=== PATIENT | female | born 1930 | race Caucasian/White ===

== ENCOUNTER 2018-04-06 13:23 | Inpatient (IN) | payer MEDICARE ==
[2018-04-06] MEDS ORDERED: Lidocaine 1% (PF) 30 ML VIAL ONE (13:45)
[2018-04-06] MEDS ORDERED: Labetalol HCl 100 MG/20 ML VIAL ONE (14:10)
--- NOTE | 2018-04-06 15:34 | CT ---
NONCONTRAST CT ABDOMEN AND PELVIS: Date: 04/06/18 HISTORY: Acute renal failure, nausea, vomiting, and constipation, as well as abdominal cramping. COMPARISON: 04/06/18 at 1050 hours obtained from [facility]. FINDINGS: Minimal bibasilar atelectasis versus scarring. Vascular calcifications again seen in the abdominal aorta and iliac arteries, as well as splenic darien ry. Post cholecystectomy changes are present. There is a stable fat density lesion involving the left adrenal gland, also seen on the prior study, which may represent a lipid-rich adrenal adenoma or possibly adrenal myelolipoma. Kidneys again demonstrate lobulated appearance with cortical scarring again present. There is stable moderate bilateral hydronephrosis, as well as hydroureter similar to the prior exam. There are stable low density lesions within the right kidney, also stable from prior study on 01/26/17, which are dif ficult to characterize and probably represent cysts. The liver, spleen, pancreas, and right adrenal gland demonstrate a normal CT appearance. Urinary bladder is incompletely distended. Postsurgical changes related to hysterectomy are noted. Large amount of stool is again seen within the rectum and findings are suggestive of fecal impaction. There is thickening involving the hernandez of the rectum extending to the level of the rectosigmoid rickey ction. There is perirectal inflammatory changes, greatest in a presacral location, and findings may b e related to stercoral colitis. A small amount of free fluid is seen in a presacral location in the l ower pelvis. No free intraperitoneal gas is appreciated. No definite gas is seen in the bowel wall of the rectum. Again noted are multilevel degenerative changes in the spine with osteopenia. CT abdomen and pelvis are overall stable from the recent study also obtained earlier on today's date. IMPRESSION: 1. Evidence for fecal impaction with rectal wall thickening extending to the level of the rectosigmo id junction, as well as inflammatory stranding in a pericolonic location with an associated small chung unt of fluid. Findings could be related to stercoral colitis. No free intraperitoneal gas is seen on this exam. 2. Moderate bilateral hydronephrosis and hydroureter also seen on the prior study. This may be on th e basis of vesicoureteral reflux, and prior [facility] on 01/25/17 demonstrated bilateral Grade IV-V vesico ureteral reflux. 3. Cortical scarring involving each kidney with difficult to characterize hypodense lesions, predomi nantly on the right, stable from prior study. 4. Small hiatal hernia. 5. The CT scan of the abdomen and pelvis is overall stable compared to the prior study. POS: [facility]
--- NOTE | 2018-04-06 15:54 | PDOC.FPRHP ---
- History of Present Illness Chief Complaint: constipation, N/V History of Present Illness: Patient started Iron tabs 1 week ago and has not had a BM for 5 days. She has had nausea, vomiting, and decreased appetite since thursday. Burning with urination since thursday. Family states that she has been weak since thursday or so. Denies blood in the stools. ED Course: CT scan x2 showed fecal impaction and colitis, Vanc 1 g, rocephin 1 g, NS 30 ml/ kg bolus, labetolol and ASA CXR showed new pulmonary nodule - Allergies/Adverse Reactions Allergies Allergy/AdvReac Type Severity Reaction Status Date / Time Sulfa (Sulfonamide Allergy Verified 10/17/15 10:28 Antibiotics) Tetracyclines Allergy Verified 10/17/15 10:28 - Home Medications Medication Instructions Recorded Confirmed Type Aspirin [Aspirin EC] 81 mg PO DAILY 06/13/14 04/06/18 History Calcitriol 0.25 mcg PO DAILY 06/13/14 04/06/18 History Spironolactone [Aldactone] 50 mg PO DAILY 06/13/14 04/06/18 History cloNIDine [Catapres] 0.1 mg PO BID 06/13/14 04/06/18 History Atorvastatin Calcium [Lipitor] 20 mg PO HS #0 tab 06/15/14 04/06/18 Rx Metoprolol Succinate [Toprol XL] 25 mg PO DAILY #0 tab 06/15/14 04/06/18 Rx Nitroglycerin [Nitrostat] 0.4 mg SL Q5MIN PRN #0 tab 06/15/14 04/06/18 Rx Cephalexin 250 mg PO HS 10/17/15 04/06/18 History Latanoprost [Xalatan 0.005% Ophth 1 drop EA EYE HS 10/17/15 04/06/18 History Soln] Oxybutynin Chloride [Oxybutynin 10 mg PO DAILY 10/17/15 04/06/18 History Chloride ER] Potassium Chloride [K-Tab ER] 10 meq PO DAILY 10/17/15 04/06/18 History - History PMHx: HTN, chronic renal insufficiency (Jovel), HLD, hiatal hernia, hx HTN nephropathy, secondary hyperparathyroidism, diastolic dysfunction, glaucoma, cervical cancer, DJD, infectious hepatitis 1963 and 1977 PSHx: cholecystectomy, hysterectomy with bilat salpoingo-oophorectomy, cardiac stents x2 in 2014, parathyroidectomy, appendectomy, cervical cancer with cervical surgery with rads and chemo (at [facility], 1977), 2000 cardiac cath, Cystoscope by for recurrent UTIs, bilat total knee replacements 2008 FHx: Father 76 of old age and arthritis. Mother @ 96 of CHF and DM. Pt has three brothers, 2 of MIs. 3 sisters, one of an [place]. Fam Hx positive ofr HTN, cardiovascular disease, diabetes, COPD Social: 34 PY hx, stopped in 1977. Rare alcohol intake (<1 month), denied drug use - Review of Systems General: reports: weight/appetite/sleep changes (decreased appetite), fatigue. denies: fever/chills Eyes: denies: eye pain, vision changes ENT: reports: nasal congestion, rhinorrhea Respiratory: denies: cough, shortness of breath Cardiovascular: denies: chest pain, palpitation Gastrointestinal: reports: nausea, vomiting, constipation. denies: GI bleeding Genitourinary: reports: incontinence, dysuria, polyuria Skin: denies: rashes, itching Musculoskeletal: reports: other (calves are aching for one month). denies: pain , arthritis/arthralgias Neurological: denies: numbness, seizure, weakness Psychological: denies: anxiety, depression - Vital signs BP: [196/116] HR: [96] RR: [18] Tmax: [98.7] Pox: [98]% on [ra] Wt: [59] - Physical Exam Constitutional: NAD, well developed HEENT: normocephalic and atraumatic, PERRLA, normal nasal mucosa, MMM Neck: supple, no LAD Heart: RRR, normal S1/S2, pulses present Lungs: CTAB, no wheezing Abdomen: soft, bowel sounds present -Abdomen: very TTP in lower abdomen Psychiatric: normal mood and affect, good judgment and insight, intact recent and remote memory FMR H&P: Results - Labs Result Diagrams: 04/07/18 06:04 04/07/18 06:04 FMR H&P: A/P - Problem List (1) Sepsis secondary to UTI Current Visit: Yes Status: Acute Code(s): A41.9 - SEPSIS, UNSPECIFIED ORGANISM; N39.0 - URINARY TRACT INFECTION, SITE NOT SPECIFIED (2) Hypertensive urgency Current Visit: Yes Status: Acute Code(s): I16.0 - HYPERTENSIVE URGENCY (3) Hypovolemia Current Visit: Yes Status: Acute Code(s): E86.1 - HYPOVOLEMIA (4) BRADLEY (acute kidney injury) Current Visit: Yes Status: Acute Code(s): N17.9 - ACUTE KIDNEY FAILURE, UNSPECIFIED (5) Chronic renal insufficiency Current Visit: Yes Status: Chronic Code(s): N18.9 - CHRONIC KIDNEY DISEASE, UNSPECIFIED (6) Colitis Current Visit: Yes Status: Acute Code(s): K52.9 - NONINFECTIVE GASTROENTERITIS AND COLITIS, UNSPECIFIED (7) Pulmonary nodule Current Visit: Yes Status: Acute Code(s): R91.1 - SOLITARY PULMONARY NODULE (8) Elevated troponin Current Visit: Yes Status: Acute Code(s): R74.8 - ABNORMAL LEVELS OF OTHER SERUM ENZYMES (9) Hyponatremia Current Visit: Yes Status: Acute Code(s): E87.1 - HYPO-OSMOLALITY AND HYPONATREMIA (10) Lactic acid acidosis Current Visit: Yes Status: Acute Code(s): E87.2 - ACIDOSIS (11) Hyperkalemia Current Visit: Yes Status: Acute Code(s): E87.5 - HYPERKALEMIA (12) CAD (coronary artery disease) Current Visit: Yes Status: Chronic Code(s): I25.10 - ATHSCL HEART DISEASE OF [place] CORONARY ARTERY W/O ANG PCTRS (13) Glaucoma Current Visit: Yes Status: Chronic Code(s): H40.9 - UNSPECIFIED GLAUCOMA - Plan 87 yo F presents with hypovolemia, sepsis 2/2 UTI, HTN urgency, and stercolitis Sepsis 2/2 UTI -WBC elevated at 17, HR 96, and LA elevated to 2.4 -Received 1 g Rocephin in [place], 30 ml/kg NS bolus in [place], 1 g vanc -Discontinue vanc -Continue with 1 g IV rocephin ordered for tomorrow -gentle fluid hydration, NS @ 100 ml/hr per Dr. Jovel -urine cx pending -AM CBC and BMP HTN Urgency -continue home metoprolol, clonidine, spironolactone -Labetolol and Hydralazine PRN for SBP >180 Hypovolemia -Pt has had nausea, vomiting, decreased intake for last 4 days -Elevated Bun/Cr, elevated trop -rehydrate with IV NS BRADLEY on CKD -Elevated Bun and Cr (Cr increased from 2 to 3.56) -Dr. Jovel is her rubber mill tender, consulted 04/06, appreciate recs -Abd/Pelv CT shows bilat hydronephrosis and bilat renal cysts Stercolitis -CT abd/pelvis showed fecal impaction -rectal exam, no fecal material in rectal vault -bowel regimen started -Zosyn Pulmonary nodule -repeat 2V CXR Elevated Troponin -most likely 2/2 to demand ischemia -EKG in [place] - repeat LA Hyponatremia -133, continue to monitor, expect to resolve with NS IV hydration Hyperkalemia -5.3, continue to monitor, expect to resolve with IV hydration CAD -hx of 2 cardiac stents in 2014 -Continue home aspirin and atorvastatin Glaucoma -Continue home latanoprost Dispo: LOS >2 midnights Code status: DNR FMR H&P: Upper Level - Pertinent history Patient comes in for feeling weak since thursday. She started iron 1 week ago and has not had a BM for 5 days. She has had N/V and decreased appetite for the last 2-3 days not getting all of her medications down during this time. She states she has pressure in the LLQ. Does not radiate, nothing better or worse. She has also had burning with urination for about 5 days. No blood in urine or in the stools. - Pertinent findings BP: 196/116 HR: 96 RR: 18 Tmax: 98.7 Pox: 98% on RA - Physical Exam Constitutional: awake, alert and oriented x3 HEENT: normocephalic and atraumatic, EOMI Neck: FROM, trachea midline Chest: no-tender to palpation Heart: RRR , normal S1/S2, other Lungs: no respiratory distress, CTA-B Abdomen: soft, bowel sounds present, tenderness throughout Rectal: Good tone, no impacted stool, no jennifer blood Musculoskeletal: normal structure, normal tone Heme/Lymphatic: no unusual bruising or bleeding, no purpura - Plan Date/Time: 04/06/18 1552 Loy Ruth, have evaluated this patient and agree with findings/plan as outlined by internal medicine physician assistant resident. Pertinent changes/additions are listed here. Sepsis 2/2 Colitis - fecal impaction - bowel regimen - Zosyn - Maintenance fluids - trend lactic Impaction - miralax, colace, milk of mag - enema if no BM tomorrow BRADLEY - likely 2/2 intravascular depletion - baseline Cr 2-2.5 - consulted Dr. Jovel UTI - Zosyn, urine cx pending Elevated Trop - no chest pain - trend - no ekg changes, repeat ekg - hx of CAD w/ 2 stents Hyper K+ - 5.3, no EKG changes - monitor Pulm Nodule - f/u on 2V CXR Dispo: 2-3 days PPx: heparin Code: DNR Attending Addendum - Attending Addendum Date/Time: 04/07/18 1028 I personally evaluated the patient and discussed the management with Drs. Peralta and Loy Rodriguez. I agree with the History, Examination, Assessment and Plan documented above with any addition or exceptions noted below.
[2018-04-06] MEDS ORDERED: Ondansetron HCl/PF 4 MG/2 ML Vial IVP PRN (16:17)
[2018-04-06] MEDS ORDERED: Polyethylene Glycol 3350 17 GM Packet PO SCH (16:30)
[2018-04-06] MEDS ORDERED: Milk Of Magnesia 30 ML UDCUP PO SCH (16:30)
[2018-04-06] MEDS ORDERED: Labetalol HCl 100 MG/20 ML VIAL SLOW IVP PRN (16:35)
--- NOTE | 2018-04-06 16:47 | RAD ---
PA AND LATERAL CHEST: Date: 04/06/18 HISTORY: Pulmonary nodule noted on prior exam. COMPARISON: 04/06/18. FINDINGS: The previously noted tiny nodular density overlying the right mid lung zone is less well delineated o n this examination. No definite discrete pulmonary nodule is seen. Cardiac silhouette and pulmonary v asculature are within normal limits. Vascular calcifications are again seen. No other interval change . IMPRESSION: Previously noted nodular density right mid lung zone is not definitely visualized on this exam. As a conservative measure, follow-up evaluation in 3 months is recommended. Lungs are otherwise clear. POS: [facility]
[2018-04-06] MEDS ORDERED: hydrALAZINE 20 MG/ML VIAL SLOW IVP PRN (17:13)
[2018-04-06 17:31] LABS: Troponin I 0.609 ng/mL (< 0.028)
[2018-04-06] MEDS: cloNIDine 0.1 MG TAB PO SCH (20:13)
[2018-04-06] MEDS: Atorvastatin Calcium 20 MG TAB PO SCH (20:13)
[2018-04-06] MEDS: Senokot S 8.6-50 MG TAB PO SCH (20:13)
[2018-04-06] MEDS: Sodium Chloride 0.9% 1,000 ML IV SCH (20:14)
[2018-04-06] MEDS ORDERED: Heparin 5,000 UNITS/ML VIAL SC SCH (21:00)
[2018-04-06 21:24] LABS: Lactic Acid 1.1 mmol/L (0.5-2.2)
[2018-04-06] MEDS: Latanoprost 0.005% Ophth Soln 2.5 ml Bottle EA EYE SCH (22:37)
[2018-04-06] MEDS: Piperacillin/Tazobactam 4.5 GM in Sodium Chloride 0.9% 100 ML IVPB SCH (22:37)
[2018-04-06 23:15] LABS: CKMB 9.1 ng/mL (0-6.6); Troponin I 1.187 ng/mL (< 0.028)
--- NOTE | 2018-04-06 23:44 | PDOC.EVN ---
Event Note - Event Note Event Note: Resident to bedside to evaluate patient for elevated troponin and CK-MB. Repeat EKG also obtained and reviewed which shows baseline reading w/ LBBB which was present on prior EKG. troponin increased .095 at outside facility to 0.609 to 1.187 w/ increase in CK-MB from 3.7 to 9.1. Patient sleeping in NAD upon entering room. Denies any current active chest pain. Vital signs reviewed and are stable at this time. Discussed plan with attending Dr. Hirsch and will plan to start heparin drip in setting of possible NSTEMI in patient w/ renal disease and with uptrending troponins and CK-MB. Will continue with serial cardiac enzymes q3 hrs. Will continue to closely monitor and consult cardiology if enzymes to not stabilize for further evaluation and intervention. Nursing Staff notified of plan and advised to contact physician immediately if patient endorses active chest pain. Nursing staff expressing understanding of plan.
[2018-04-06] MEDS ORDERED: Heparin 10,000 UNITS/ 10 ML VIAL SLOW IVP SCH (23:45)
[2018-04-06] MEDS ORDERED: Heparin 25,000 units/D5W 500 ML IVPB SCH (23:45)
[2018-04-07 00:05] LABS: Hemoglobin 11.6 g/dL (12.0-16.0); Platelet Count 129 thou/uL (130-400)
[2018-04-07 02:40] LABS: Troponin I 1.312 ng/mL (< 0.028)
[2018-04-07] MEDS: Piperacillin/Tazobactam 4.5 GM in Sodium Chloride 0.9% 100 ML IVPB SCH (04:10)
[2018-04-07 04:19] LABS: CKMB 7.6 ng/mL (0-6.6); Critical Call CKMBM RESULT DECREASING; Critical Call Chem Troponin I RESULT DECREASING; Troponin I 1.249 ng/mL (< 0.028)
--- NOTE | 2018-04-07 05:50 | PDOC.FM ---
- Subjective Subjective: Pt reports abdominal pain is improving, 5/10 this morning. Had BM overnight. - Objective Vital Signs & Weight: Vital Signs (12 hours) Temp Pulse Resp BP BP Pulse Ox 04/07/18 03:20 98.0 F 78 16 140/66 98 04/06/18 21:30 97.9 F 85 18 146/62 H 97 04/06/18 20:13 163/66 H 04/06/18 20:00 98.3 F 75 16 163/66 H 97 04/06/18 17:55 98.1 F 85 18 166/90 H 100 Weight Weight 56.699 kg Result Diagrams: 04/07/18 06:04 04/07/18 06:04 <Kathryn Rodriguez - Last Filed: 04/07/18 09:01> - Objective Vital Signs & Weight: Vital Signs (12 hours) Temp Pulse Resp BP Pulse Ox 04/07/18 11:54 98.7 F 71 18 154/67 H 99 04/07/18 08:05 98 04/07/18 08:00 97.8 F 79 18 128/60 98 04/07/18 03:20 98.0 F 78 16 140/66 98 Weight Weight 56.699 kg I&O: 04/06/18 04/07/18 04/08/18 06:59 06:59 06:59 Intake Total 1568 Balance 1568 Result Diagrams: 04/07/18 06:04 04/07/18 06:04 <Leonela Bacon - Last Filed: 04/07/18 15:00> Phys Exam - Physical Examination Constitutional: NAD Neck: no nodes, supple Respiratory: no wheezing, clear to auscultation bilateral Cardiovascular: RRR, no significant murmur Gastrointestinal: no distention, positive bowel sounds Diffusely TTP, guarding present, no rebound Musculoskeletal: no edema, pulses present Neurological: normal sensation, moves all 4 limbs Psychiatric: normal affect <Kathryn Rodriguez - Last Filed: 04/07/18 09:01> Dx/Plan (1) Sepsis secondary to UTI Code(s): A41.9 - SEPSIS, UNSPECIFIED ORGANISM; N39.0 - URINARY TRACT INFECTION, SITE NOT SPECIFIED Status: Acute (2) Hypertensive urgency Code(s): I16.0 - HYPERTENSIVE URGENCY Status: Acute (3) Hypovolemia Code(s): E86.1 - HYPOVOLEMIA Status: Acute (4) BRADLEY (acute kidney injury) Code(s): N17.9 - ACUTE KIDNEY FAILURE, UNSPECIFIED Status: Acute (5) Chronic renal insufficiency Code(s): N18.9 - CHRONIC KIDNEY DISEASE, UNSPECIFIED Status: Chronic (6) Colitis Code(s): K52.9 - NONINFECTIVE GASTROENTERITIS AND COLITIS, UNSPECIFIED Status : Acute (7) Pulmonary nodule Code(s): R91.1 - SOLITARY PULMONARY NODULE Status: Acute (8) Elevated troponin Code(s): R74.8 - ABNORMAL LEVELS OF OTHER SERUM ENZYMES Status: Acute (9) Hyponatremia Code(s): E87.1 - HYPO-OSMOLALITY AND HYPONATREMIA Status: Acute (10) Lactic acid acidosis Code(s): E87.2 - ACIDOSIS Status: Acute (11) Hyperkalemia Code(s): E87.5 - HYPERKALEMIA Status: Acute (12) CAD (coronary artery disease) Code(s): I25.10 - ATHSCL HEART DISEASE OF [place] CORONARY ARTERY W/O ANG PCTRS Status: Chronic (13) Glaucoma Code(s): H40.9 - UNSPECIFIED GLAUCOMA Status: Chronic - Plan Plan: 87 yo F presents with sepsis 2/2 UTI, HTN urgency,hypovolemia, and stercolitis Sepsis 2/2 UTI vs stercolitis -WBC elevated at 17, HR 96, and LA elevated to 2.4 -Received 1 g Rocephin in [place], 30 ml/kg NS bolus in [place], 1 g vanc -Discontinued vanc, started zosyn for colitis -Continue with 1 g IV rocephin until cultures result -gentle fluid hydration, NS @ 100 ml/hr per Dr. Jovel -urine cx pending -AM CBC and BMP NSTEMI -possibly 2/2 to demand ischemia -Trop increased to 1.312 then trended down; CKMB trended down from 9.1 to 7.6; pt asx, EKG neg -Heparin drip started -Consult cardiology today - EKG in [place] wnl - repeat LA improved: 2.4-> 1.1 BRADLEY on CKD -Elevated Bun and Cr (Cr increased from 2 to 3.56) -Dr. Jovel is her life skills specialist, consulted 04/06, appreciate recs -Abd/Pelv CT shows bilat hydronephrosis and bilat renal cysts HTN Urgency, resolved -Likely 2/2 to medication noncompliance, as patient was unable to take home meds with n/v -continue home metoprolol, clonidine, spironolactone -Labetolol and Hydralazine PRN for SBP >180 Hypovolemia -Pt has had nausea, vomiting, decreased intake for last 4 days -Elevated Bun/Cr, elevated trop -rehydrate with IV NS Stercolitis -CT abd/pelvis showed fecal impaction -rectal exam, no fecal material in rectal vault -bowel regimen started, Had BM overnight -Zosyn Pulmonary nodule -repeat 2V CXR, nodules not definitely visualized -recommend 3 month follow up CXR Hyponatremia -133, continue to monitor, expect to resolve with NS IV hydration Hyperkalemia -5.3, continue to monitor, expect to resolve with IV hydration CAD -hx of 2 cardiac stents in 2014 -Continue home aspirin and atorvastatin Glaucoma -Continue home latanoprost Dispo: LOS >2 midnights Code status: DNR <Kathryn Rodriguez - Last Filed: 04/07/18 09:01> Attending Addendum - Attending Addendum Date/Time: 04/07/18 4041 I personally evaluated the patient and discussed the management with Dr. Jhonny Rodriguez I agree with the History, Examination, Assessment and Plan documented above with any addition or exceptions noted below- Patient feeling better. Tolerating po. Afebrile VSS. A/P: 1) BRADLEY on CKD stage 4- continue IV hydration. Appreciate nephrology assistance/recommendations. 2) UTI- continue IV abx. Await urine culture. 3) Sterocolitis- has had BM since last night; abdominal exam stable continue to monitor. Contiue miralax/senna. <Leonela Bacon - Last Filed: 04/07/18 15:00>
[2018-04-07 06:14] LABS: #Lymphocytes 0.5 thou/uL (1.20-3.40); #Monocytes 0.4 thou/uL (0.11-0.59); #Neutrophils 9.6 thou/uL (1.40-6.50); %Monocytes 3.6 % (0.0-10.0); %Neutrophils 91.4 % (42.0-75.0); Hemoglobin 11.1 g/dL (12.0-16.0); Mean Corpuscular HGB CONC 31.6 g/dL (32.0-36.0); Mean Corpuscular Hemoglobin 26.1 pg (27.0-31.0); Mean Corpuscular Volume 82.6 fL (78.0-98.0); Mean Platelet Volume 10.4 fL (7.4-10.4); Platelet Count 133 thou/uL (130-400); RBC Distribution Width 15.6 % (11.5-14.5); Red Blood Cell (RBC) Count 4.24 mill/uL (4.20-5.40); White Blood Cell (WBC) Count 10.5 thou/uL (4.8-10.8)
[2018-04-07] MEDS: Sodium Chloride 0.9% 1,000 ML IV SCH ×3 (06:17→23:24)
[2018-04-07 06:29] LABS: PTT 118.9 SEC (22.9-36.1)
[2018-04-07 06:37] LABS: ALT (SGPT) 7 U/L (8-55); AST (SGOT) 15 U/L (5-34); Albumin 2.8 g/dL (3.4-4.8); Alkaline Phosphatase 62 U/L (40-150); Anion Gap 14 mmol/L (10-20); BUN (Urea Nitrogen) 56 mg/dL (9.8-20.1); Calc. Creatinine Clearance 15 mL/min (70-130); Calcium 9.3 mg/dL (7.8-10.44); Carbon Dioxide 11 mmol/L (23-31); Chloride 111 mmol/L (98-107); Estimated GFR-MDRD 19; Globulin 2.7 g/dL (2.4-3.5); Glucose 122 mg/dL (83-110); Potassium 4.3 mmol/L (3.5-5.1); Protein, Total 5.5 g/dL (6.0-8.3); Sodium 132 mmol/L (136-145)
[2018-04-07] MEDS: Spironolactone 25 MG TAB PO SCH (08:40)
[2018-04-07] MEDS: Calcitriol 0.25 MCG CAP PO SCH (08:41)
[2018-04-07] MEDS: cloNIDine 0.1 MG TAB PO SCH ×2 (08:41→20:44)
[2018-04-07] MEDS: Aspirin 81 mg Enteric Coated Tablet PO SCH (08:41)
[2018-04-07] MEDS: Polyethylene Glycol 3350 17 GM Packet PO SCH (08:44)
[2018-04-07] MEDS: Senokot S 8.6-50 MG TAB PO SCH ×2 (08:44→20:44)
--- NOTE | 2018-04-07 09:58 | CON ---
DATE OF CONSULTATION: 04/07/2018 HISTORY OF PRESENT ILLNESS: Ms. Frank is an 87-year-old white female with known history of chronic renal failure from hypertensive nephropathy and admitted due to constipation and associated nausea a nd vomiting. She was found to be volume depleted as suggested by higher creatinine. In addition, brenda garcia was found to have a UTI/colitis. She has been empirically treated with vancomycin. This morning, she is feeling better. REVIEW OF SYSTEMS: Positive for constipation. Positive for nausea, positive for decreased appetite, decreased energy level. No diarrhea, no gross hematuria. Denies any overt dysuria. No fever or ch ills. Positive for abdominal discomfort. No sore throat. Appetite decreased, energy level is decre ased. Positive for chronic joint pains. MEDICATIONS: Ecotrin 81 mg daily, Lipitor 20 mg tab at bedtime, Calcitriol 0.25 mcg every day, ceftr iaxone 1 gram IV daily, Catapres 0.1 mg p.o. b.i.d., hydralazine p.r.n., Xalatan eyedrops, Zosyn 2.25 grams IV q.8 hours, MiraLax 17 grams daily, normal saline 100 mL per hour, spironolactone 50 mg tab q.a.m. PAST MEDICAL HISTORY: 1. Chronic renal failure from hypertensive nephropathy. 2. Longstanding hypertension. 3. History of a solitary adenoma. 4. History of diastolic dysfunction. 5. Secondary hyperparathyroidism. 6. Glaucoma. 7. Cervical cancer in remission. 8. DJD. 9. Chronic urinary tract infection and urinary incontinence. 10. Hyperaldosteronism. PAST SURGICAL HISTORY: 1. Status post cystoscopy. 2. Status post bilateral knee replacement. 3. Status post cardiac catheterization. 4. Status post cholecystectomy. 5. Status post cervical surgery with radiation and chemotherapy. 6. Status post hysterectomy and bilateral salpingo-oophorectomy. SOCIAL HISTORY: Patient lives in [place]. She is , 2 children. No history of smoking. Cur rently, no IV drug abuse. No alcohol use. She is a retired [employer]. Education, high school. Smoked for 34 years - one pack a day, currently not smoking. FAMILY HISTORY: No family history of end-stage renal disease. ALLERGIES: PENICILLIN, SULFA, IODINE. TRAUMA: None. IMMUNIZATIONS: Up to date. HOSPITALIZATIONS: Please see past medical history. PHYSICAL EXAMINATION: VITAL SIGNS: Blood pressure is 140/66, heart rate 78, respiratory rate 16, temperature 98, pulse ox 98%. GENERAL: Noted to be awake, alert, comfortable, not in overt distress. SKIN: Adequate turgor. HEENT: She has pinkish conjunctivae, anicteric sclerae. NECK: No neck mass, no carotid bruits, no JVD. CHEST: No deformities. LUNGS: Clear breath sounds, no wheezing, no crackles. HEART: Normal sinus rhythm. No murmur, no gallops or rubs. ABDOMEN: Globular, soft, nontender, no masses. EXTREMITIES: No edema, no deformities. NEUROLOGIC: Awake, oriented to 3 spheres. Moving all extremities. No tremors, no asterixis. LABORATORY DATA: Of 04/07/2018, white count 10.5, hemoglobin 11.1. Sodium 132, potassium 4.3, chlor susannah 111, carbon dioxide 11, BUN 56, creatinine 2.42, glucose 122, calcium 9.3, albumin 2.8, troponin I is 1.24. CK is 7.6. On 04/06/2018, creatinine 3.56. ASSESSMENT AND PLAN: 1. Acute kidney injury on top of her chronic renal failure, improved renal function with IV hydratio n. Most recent creatinine was 2.42, is nearing baseline. She is currently at stage IV chronic renal failure. There is no indication for any dialytic intervention. Continue gentle volume hydration. 2. Hypertension - the patient has a history of solitary adenoma with hyperaldosteronism. Continue c urrent dose of spironolactone. 3. Urinary tract infection. Currently on IV antibiotics. 4. Constipation, currently on MiraLax. Continue supportive care. Recheck base met and CBC in a.m.
[2018-04-07] MEDS: cefTRIAXone\\ROCEPHIN 1 GM in Sodium Chloride 0.9% 100 ML IVPB SCH (11:57)
[2018-04-07] MEDS: Piperacillin/Tazobactam 2.25 GM in Sodium Chloride 0.9% 100 ML IVPB SCH ×2 (13:30→20:43)
--- NOTE | 2018-04-07 18:51 | CON ---
DATE OF CONSULTATION: 04/07/2018 REASON FOR CONSULTATION: Elevated troponin. HISTORY OF PRESENT ILLNESS: Ms. Frank is an 87-year-old woman who is a patient of Dr. Simon Oneal. She recently presented with UTI and malignant hypertension. No chest pain, pressure, shortness of br eath. No associated symptoms present. She does have a history of previous myocardial infarction wit h stent placement to the circumflex artery per Dr. Oneal in 2013. PAST MEDICAL HISTORY: CAD, status post VA, status post stent placement, renal insufficiency, diastol ic dysfunction, hyperparathyroidism, cervical cancer, DJD, UTI, hyperaldosteronism, knee replacement, cholecystectomy, hysterectomy. SOCIAL HISTORY: She is currently , 2 children. No current tobacco or alcohol use. FAMILY HISTORY: Negative for CAD. REVIEW OF SYSTEMS: Ten-point review of systems is reviewed and is as above, otherwise negative. HOME MEDICATIONS: Include potassium, oxybutynin, Toprol-XL, cephalexin, Lipitor, aspirin, Dilantin, Catapres, and Aldactone. PHYSICAL EXAMINATION: GENERAL: Patient is a pleasant female who is in no acute distress. The patient appears her stated age. VITAL SIGNS: Blood pressure 142/67, pulse 81, temperature 98.8. NEUROLOGIC: The patient is alert and oriented times 3 with no focal neurologic deficits. HEENT: Sclerae without icterus. Mouth has moist mucous membranes with normal pallor. NECK: No JVD. Carotid upstroke brisk. No bruits bilaterally. LUNGS: Clear to auscultation with unlabored respirations. BACK: No scoliosis or kyphosis. CARDIAC: Regular rate and rhythm with normal S1 and S2. No S3 or S4 noted. No significant rubs, murmurs, thrills, or gallops noted throughout the precordium. PMI is not displaced. There is no parasternal heave. ABDOMEN: Soft, nontender, nondistended. No peritoneal signs present. No hepatosplenomegaly. No abnormal striae. EXTREMITIES: 2+ femoral and 2+ dorsalis pedis pulses. No cyanosis, clubbing, or edema. SKIN: No gross abnormalities. PERTINENT LABORATORY DATA: Hemoglobin 11.1, creatinine 2.43. Peak troponin 1.2. EKG shows a left b undle branch block. IMPRESSION: 1. Elevated troponin. 2. Coronary artery disease. 3. Chronic kidney disease. 4. Urinary tract infection. 5. Malignant hypertension. RECOMMENDATIONS: Ms. Frank's troponin is certainly elevated. I do not feel this is consistent wit h unstable angina. This is more consistent with demand ischemia. The patient did have sepsis in add ition to renal insufficiency as well as hypertensive urgency, likely prompting elevated troponin. No current symptoms suggesting angina. I did discuss coronary angiography versus medical therapy while she and her family would opt for medical treatment. Continue heparin overnight, discontinue in a.m. Add aspirin plus Plavix. Continue atorvastatin. I would also recommend low-dose Coreg. Echo with Doppler will be reviewed.
[2018-04-07] MEDS: Carvedilol 3.125 MG TAB PO SCH (20:44)
[2018-04-07] MEDS: Atorvastatin Calcium 20 MG TAB PO SCH (20:44)
[2018-04-07] MEDS: Latanoprost 0.005% Ophth Soln 2.5 ml Bottle EA EYE SCH (20:50)
[2018-04-08] MEDS: Piperacillin/Tazobactam 2.25 GM in Sodium Chloride 0.9% 100 ML IVPB SCH ×3 (04:46→20:35)
[2018-04-08 06:23] LABS: ALT (SGPT) 9 U/L (8-55); AST (SGOT) 21 U/L (5-34); Albumin 2.5 g/dL (3.4-4.8); Alkaline Phosphatase 65 U/L (40-150); Anion Gap 11 mmol/L (10-20); BUN (Urea Nitrogen) 40 mg/dL (9.8-20.1); Bilirubin, Total 0.6 mg/dL (0.2-1.2); Calc. Creatinine Clearance 17 mL/min (70-130); Calcium 9.1 mg/dL (7.8-10.44); Carbon Dioxide 13 mmol/L (23-31); Chloride 113 mmol/L (98-107); Estimated GFR-MDRD 23; Globulin 2.6 g/dL (2.4-3.5); Glucose 109 mg/dL (83-110); Potassium 4.4 mmol/L (3.5-5.1); Protein, Total 5.1 g/dL (6.0-8.3); Sodium 133 mmol/L (136-145)
[2018-04-08 06:26] LABS: Band 15 % (5-11); Eosinophils 1 % (0-10); Hemoglobin 10.1 g/dL (12.0-16.0); Lymphocytes 7 % (21-51); MDiff Complete? YES; Mean Corpuscular HGB CONC 31.8 g/dL (32.0-36.0); Mean Corpuscular Hemoglobin 26.5 pg (27.0-31.0); Mean Corpuscular Volume 83.4 fL (78.0-98.0); Mean Platelet Volume 10.6 fL (7.4-10.4); Monocytes 6 % (0-10); Neutrophil 71 % (42-75); PLT Morphology Comment Appears Decreased; Platelet Count 110 thou/uL (130-400); RBC Distribution Width 15.5 % (11.5-14.5); Red Blood Cell (RBC) Count 3.82 mill/uL (4.20-5.40)
[2018-04-08] MEDS: Spironolactone 25 MG TAB PO SCH (07:58)
[2018-04-08] MEDS: Senokot S 8.6-50 MG TAB PO SCH (07:59)
[2018-04-08] MEDS: Carvedilol 3.125 MG TAB PO SCH ×2 (07:59→20:35)
[2018-04-08] MEDS: cloNIDine 0.1 MG TAB PO SCH ×2 (07:59→20:41)
[2018-04-08] MEDS: Aspirin 81 mg Enteric Coated Tablet PO SCH (07:59)
[2018-04-08] MEDS: Calcitriol 0.25 MCG CAP PO SCH (07:59)
[2018-04-08] MEDS: Polyethylene Glycol 3350 17 GM Packet PO SCH (07:59)
--- NOTE | 2018-04-08 08:01 | PDOC.FM ---
- Subjective Subjective: Pt states her abdomen is feeling much better. She says she has had many BMs, last BM was loose. - Objective Vital Signs & Weight: Vital Signs (12 hours) Temp Pulse Resp BP Pulse Ox 04/08/18 07:24 97.8 F 69 18 141/65 H 98 04/08/18 03:12 98.9 F 61 16 158/71 H 98 Weight Weight 56.954 kg I&O: 04/07/18 04/08/18 04/09/18 06:59 06:59 06:59 Intake Total 1568 1532 Output Total 60 Balance 1568 1472 Result Diagrams: 04/08/18 05:22 04/08/18 05:21 <Kathryn Rodriguez - Last Filed: 04/08/18 08:46> - Objective Vital Signs & Weight: Vital Signs (12 hours) Temp Pulse Resp BP Pulse Ox 04/08/18 07:24 97.8 F 69 18 141/65 H 98 04/08/18 03:12 98.9 F 61 16 158/71 H 98 Weight Weight 56.954 kg I&O: 04/07/18 04/08/18 04/09/18 06:59 06:59 06:59 Intake Total 1568 1532 Output Total 60 Balance 1568 1472 Result Diagrams: 04/08/18 05:22 04/08/18 05:21 <Leonela Bacon - Last Filed: 04/08/18 11:38> Phys Exam - Physical Examination Constitutional: NAD Respiratory: no wheezing, clear to auscultation bilateral Cardiovascular: RRR, no significant murmur Gastrointestinal: soft, positive bowel sounds slightly TTP Musculoskeletal: no edema, pulses present Neurological: moves all 4 limbs Psychiatric: normal affect, A&O x 3 <Kathryn Rodriguez - Last Filed: 04/08/18 08:46> Dx/Plan (1) Sepsis secondary to UTI Code(s): A41.9 - SEPSIS, UNSPECIFIED ORGANISM; N39.0 - URINARY TRACT INFECTION, SITE NOT SPECIFIED Status: Acute (2) Hypertensive urgency Code(s): I16.0 - HYPERTENSIVE URGENCY Status: Acute (3) Hypovolemia Code(s): E86.1 - HYPOVOLEMIA Status: Acute (4) BRADLEY (acute kidney injury) Code(s): N17.9 - ACUTE KIDNEY FAILURE, UNSPECIFIED Status: Acute (5) Chronic renal insufficiency Code(s): N18.9 - CHRONIC KIDNEY DISEASE, UNSPECIFIED Status: Chronic (6) Colitis Code(s): K52.9 - NONINFECTIVE GASTROENTERITIS AND COLITIS, UNSPECIFIED Status : Acute (7) Pulmonary nodule Code(s): R91.1 - SOLITARY PULMONARY NODULE Status: Acute (8) Elevated troponin Code(s): R74.8 - ABNORMAL LEVELS OF OTHER SERUM ENZYMES Status: Acute (9) Hyponatremia Code(s): E87.1 - HYPO-OSMOLALITY AND HYPONATREMIA Status: Acute (10) Lactic acid acidosis Code(s): E87.2 - ACIDOSIS Status: Acute (11) Hyperkalemia Code(s): E87.5 - HYPERKALEMIA Status: Acute (12) CAD (coronary artery disease) Code(s): I25.10 - ATHSCL HEART DISEASE OF [place] CORONARY ARTERY W/O ANG PCTRS Status: Chronic (13) Glaucoma Code(s): H40.9 - UNSPECIFIED GLAUCOMA Status: Chronic - Plan Plan: 87 yo F presents with sepsis 2/2 UTI, HTN urgency, hypovolemia, and stercolitis Sepsis 2/2 UTI vs stercolitis -WBC elevated at 17, HR 96, and LA elevated to 2.4 -Received 1 g Rocephin in [place], 30 ml/kg NS bolus in [place], 1 g vanc -Discontinued vanc; zosyn for colitis -Continue with 1 g IV rocephin until cultures result -gentle fluid hydration, NS @ 100 ml/hr per Dr. Jovel -urine cx pending, likely e.coli, sensitivities pending -AM CBC and BMP - repeat LA improved: 2.4-> 1.1 NSTEMI, most likely 2/2 to demand ischemia - EKG in [place] wnl -Trop increased to 1.312 then trended down; CKMB trended down from 9.1 to 7.6; pt asx, EKG neg -Consult cardiology Dr. Curran, appreciate recs -Heparin drip stopped per cards recs -recommends ASA, plavix, and low dose coreg Thrombocytopenia -Likely dilutional vs 2/2 to ASA/Heparin -Too early for HIT; drip d/natalia per cards recs, continue Heparin PPX, continue to monitor BRADLEY on CKD -Elevated Bun and Cr, improving (today 40/2.08), EGFR 23 -Dr. Jovel is her air compressor engineer, consulted 04/06, appreciate recs -Abd/Pelv CT shows bilat hydronephrosis and bilat renal cysts HTN Urgency, resolved -Likely 2/2 to medication noncompliance, as patient was unable to take home meds with n/v -continue home metoprolol, clonidine, spironolactone -Labetolol and Hydralazine PRN for SBP >180 Hypovolemia -Pt has had nausea, vomiting, decreased intake for last 4 days -Elevated Bun/Cr, elevated trop -rehydrate with IV NS Stercolitis -CT abd/pelvis showed fecal impaction -rectal exam, no fecal material in rectal vault -bowel regimen started, d/c sennadoc and continue miralax -Zosyn Pulmonary nodule -repeat 2V CXR, nodules not definitely visualized -recommend 3 month follow up CXR Hyponatremia -133, continue to monitor, expect to resolve with NS IV hydration Hyperkalemia, resolved -4.4, continue to monitor, resolved with IV hydration CAD -hx of 2 cardiac stents in 2014 -Continue home aspirin and atorvastatin Glaucoma -Continue home latanoprost Dispo: LOS >2 midnights Code status: DNR <Kathryn Rodriguez - Last Filed: 04/08/18 08:46> Attending Addendum - Attending Addendum Date/Time: 04/08/18 4085 I personally evaluated the patient and discussed the management with Dr. Jhonny Rodriguez I agree with the History, Examination, Assessment and Plan documented above with any addition or exceptions noted below- Patient feeling much btter. Ambulating in room without difficulty; tolerating diet. Afebrile VSS. A/P: 1) UTI- awaiting urine culture sensitivities. Continue current abx. 2) Demand ischemia- appreciate cardiology assistance. D/c heparin drip and start ASA and plavix per cards recommendation. <Leonela Bacon - Last Filed: 04/08/18 11:38>
[2018-04-08] MEDS ORDERED: Heparin 5,000 UNITS/ML VIAL SC SCH (09:00)
[2018-04-08] MEDS ORDERED: Clopidogrel Bisulfate 75 MG TAB PO ONE (10:15)
[2018-04-08] MEDS: Sodium Chloride 0.9% 1,000 ML IV SCH ×3 (10:35→12:47)
--- NOTE | 2018-04-08 11:43 | PQF ---
CLINICAL DOCUMENTATION IMPROVEMENT CLARIFICATION FORM: ICD-10 Updated PLEASE DO AN ADDENDUM TO THE PROGRESS NOTE WITH ANY DOCUMENTATION UPDATES OR ADDITIONS AND CARRY THROUGH TO DC SUMMARY. THANK YOU. DATE: 04/08/18 ATTN: DR. LEON Please exercise your independent, professional judgment in responding to the clarification form. Clinical indicators are provided on the bottom of this form for your review Please check appropriate box(s): AMI TYPE: [ ] NSTEMI [ ] [place] TYPE 2 [ x ] DEMAND ISCHEMIA [ ] Other diagnosis [ ] Unable to determine In addition, please specify: Present on Admission (POA): [ x ] Yes [ ] No [ ] Unable to determine CLINICAL INDICATORS - SIGNS / SYMPTOMS / LABS H&P 04/06: "ELEVATED TROPONIN-MOST LIKELY 2/2 TO DEMAND ISCHEMIA" "NO EKG CHANGES" PROGRESS NOTE 04/07: "NSTEMI- POSSIBLY 2/2 TO DEMAND ISCHEMIA" CONSULTATION NOTE 04/07: "..TROPONIN IS CERTAINLY ELEVATED. I DO NOT FEEL THIS IS CONSISTENT WITH UNSTABLE ANGINA. THIS IS MORE CONSISTENT WITH DEMAND ISCHEMIA." TROP 03/08: 1.187 / 1.312 / 1.249 RISKS: H/O HTN H/I [place] TREATMENT: ASPIRIN (04/07-PRESENT) HEPARIN GTT (04/06-04/08) PLAVIX (START 04/09) TELEMETRY MONITORING SERIAL ENZYMES CARDIOLOGY CONSULT [employer] Winform Viewer (This form is maintained as a part of the permanent medical record) 2014 [employer]. All Rights Reserved NAKUL [email or web address] Office: [phone] [facility]
[2018-04-08] MEDS: cefTRIAXone\\ROCEPHIN 1 GM in Sodium Chloride 0.9% 100 ML IVPB SCH (12:48)
[2018-04-08 13:27] VITALS: BMI 22.9
--- NOTE | 2018-04-08 18:27 | PRG ---
DATE OF SERVICE: 04/08/2018 SUBJECTIVE: Ms. Frank is currently doing well. She feels good. No current complaints. PHYSICAL EXAMINATION: VITAL SIGNS: , temperature 97.6. LUNGS: Clear to auscultation. CARDIAC: Regular rate and rhythm. ABDOMEN: Soft, nontender, nondistended. EXTREMITIES: No edema. LABORATORY: Hemoglobin 10.1. IMPRESSION: 1. Elevated troponin. 2. Urinary tract infection. 3. Malignant hypertension. RECOMMENDATIONS: From a CV standpoint, Ms. Frank is currently on aspirin, atorvastatin in addition to carvedilol and Plavix. We will continue current medical therapy. We will discontinue heparin. Continue antibiotic therapy per primary team. Continue conservative approach. Plan is to follow up Ms. Frank in the office.
[2018-04-08] MEDS: Atorvastatin Calcium 20 MG TAB PO SCH (20:35)
[2018-04-08] MEDS: Latanoprost 0.005% Ophth Soln 2.5 ml Bottle EA EYE SCH (20:35)
[2018-04-09] MEDS ORDERED: Clopidogrel Bisulfate 75 MG TAB PO SCH (09:00)
[2018-04-09] MEDS: Calcitriol 0.25 MCG CAP PO SCH (11:23)
[2018-04-09] MEDS: Piperacillin/Tazobactam 2.25 GM in Sodium Chloride 0.9% 100 ML IVPB SCH ×2 (11:23→14:51)
[2018-04-09] MEDS: Carvedilol 3.125 MG TAB PO SCH (11:23)
[2018-04-09] MEDS: Spironolactone 25 MG TAB PO SCH (11:23)
[2018-04-09] MEDS: Aspirin 81 mg Enteric Coated Tablet PO SCH (11:23)
[2018-04-09] MEDS: cloNIDine 0.1 MG TAB PO SCH (11:23)
[2018-04-09] MEDS: Sodium Chloride 0.9% 1,000 ML IV SCH ×2 (11:23→14:52)
[2018-04-09] MEDS: Polyethylene Glycol 3350 17 GM Packet PO SCH (11:24)
[2018-04-09] MEDS: cefTRIAXone\\ROCEPHIN 1 GM in Sodium Chloride 0.9% 100 ML IVPB SCH (11:59)
[2018-04-09 12:35] LABS: ALT (SGPT) 10 U/L (8-55); AST (SGOT) 16 U/L (5-34); Albumin 2.6 g/dL (3.4-4.8); Alkaline Phosphatase 61 U/L (40-150); Anion Gap 13 mmol/L (10-20); BUN (Urea Nitrogen) 31 mg/dL (9.8-20.1); Bilirubin, Total 0.6 mg/dL (0.2-1.2); Calc. Creatinine Clearance 18 mL/min (70-130); Calcium 9.3 mg/dL (7.8-10.44); Carbon Dioxide 13 mmol/L (23-31); Chloride 111 mmol/L (98-107); Estimated GFR-MDRD 23; Globulin 2.7 g/dL (2.4-3.5); Glucose 96 mg/dL (83-110); Potassium 3.6 mmol/L (3.5-5.1); Protein, Total 5.3 g/dL (6.0-8.3); Sodium 133 mmol/L (136-145)
[2018-04-09 13:08] VITALS: BP 139/76; TEMP 97.6
[2018-04-09] MEDS ORDERED: Piperacillin/Tazobactam 2.25 GM in Sodium Chloride 0.9% 100 ML IVPB SCH (13:15)
--- NOTE | 2018-04-09 13:55 | PRG ---
DATE OF SERVICE: 04/09/2018 SUBJECTIVE: Ms. Frank is doing well, no current complaints. No chest pain or pressure noted. She has defervesced. Blood pressure also has appeared stable. OBJECTIVE: VITAL SIGNS: Blood pressure 142/67, pulse 57, temperature 97.6. LUNGS: Clear to auscultation. CARDIAC: Regular rhythm. ABDOMEN: Soft, nontender, nondistended. EXTREMITIES: No edema. IMPRESSION: Elevated troponin -- likely represent demand ischemia. She does have a history of under lying coronary artery disease. She recently presented with urinary tract infection, in addition to m alignant hypertension. Blood pressure appears to be much better control. She also has underlying re nal insufficiency. proceed with conservative therapy per patient. Continue aspirin, atorvasta tin in addition to carvedilol. She is on antibiotic therapy, we will need the primary team. O magda, from my standpoint, I have no further recommendations. We will follow up with Ms. Frank in the next 1-2 weeks in the office. Please reconsult if needed.
[2018-04-09 17:17] LABS: Hemoglobin 9.8 g/dL (12.0-16.0); Mean Corpuscular HGB CONC 29.9 g/dL (32.0-36.0); Mean Corpuscular Hemoglobin 25.1 pg (27.0-31.0); Mean Platelet Volume 10.4 fL (7.4-10.4); Platelet Count 133 thou/uL (130-400); RBC Distribution Width 15.6 % (11.5-14.5); Red Blood Cell (RBC) Count 3.92 mill/uL (4.20-5.40); White Blood Cell (WBC) Count 10.2 thou/uL (4.8-10.8)
[2018-04-09 17:18] LABS: Band 2 % (5-11); Eosinophils 3 % (0-10); Lymphocytes 6 % (21-51); MDiff Complete? YES; Manual Diff?? YES; Monocytes 9 % (0-10); Neutrophil 80 % (42-75)
[2018-04-09 17:19] LABS: Hypochromia SLIGHT = 6-15 cells (100X) (0-5/hpf); PLT Morphology Comment Appears Adequate
--- NOTE | 2018-04-12 09:27 | DIS-2 ---
DATE OF ADMISSION: 04/06/2018 DATE OF DISCHARGE: 04/09/2018 RESIDENT: Kathryn Rodriguez MD ADMITTING ATTENDING: Dr. Leonela Bacon DISCHARGE ATTENDING: Dr. Leonela Bacon CONSULTATIONS: 1. Dr. Curran, Cardiology on 04/07/2018. 2. Dr. Jovel, Nephrology on 04/06/2018. PROCEDURES: Abdomen and pelvis CT on 04/06/2018 showed rectal wall thickening extending to the level of the rectosigmoid junction as well as inflammatory stranding in the pericolonic location with a small amount of associated fluid, moderate bilateral hydronephrosis and hydroureter also seen on prior study. CT scan of abdomen and pelvis was overall stable compared to prior study. Chest x- ray 04/06/2018 showed previously noted nodular density in the right midlung zone that was not initially visualized on a secondary chest x-ray. Follow up in about 3 months was recommended. PRIMARY DIAGNOSES: 1. Sepsis secondary to urinary tract infection. 2. Stercoral colitis. 3. Hypertensive urgency. 4. Hypovolemia. SECONDARY DIAGNOSES: 1. Acute kidney injury on chronic kidney disease. 2. Chronic renal insufficiency. 3. Pulmonary nodule. 4. Elevated troponin. 5. Hyponatremia. 6. Lactic acidosis. 7. Hyperkalemia. 8. Coronary artery disease. 9. Glaucoma. DISCHARGE MEDICATIONS: 1. Amoxicillin, potassium clavulanate 500/125 one tablet oral b.i.d. 2. Carvedilol 3.125 mg oral b.i.d. 3. Clopidogrel 75 mg p.o. daily. 4. Polyethylene glycol 17 grams p.o. daily. 5. Clonidine 0.1 mg p.o. b.i.d. 6. Aspirin 81 mg p.o. daily. 7. Spironolactone 50 mg p.o. daily. 8. Calcitriol 0.25 mcg p.o. daily. 9. Atorvastatin 20 mg p.o. at bedtime. 10. Potassium chloride 10 mEq p.o. daily. 11. Latanoprost 1 drop each eye at bedtime. 12. Oxybutynin 10 mg p.o. daily. DISCONTINUED MEDICATIONS: 1. Metoprolol succinate 25 mg p.o. daily. 2. Nitroglycerin 0.4 mg sublingual every 5 minutes p.r.n. 3. Cephalexin 250 mg p.o. at bedtime. HISTORY OF PRESENT ILLNESS AND HOSPITAL COURSE: The patient has been taking iron tablets 1 week ago and has not had a bowel movement in the past 5 days. She was sent for nausea, vomiting, decreased appetite and abdominal pain since Thursday. Patient complains of burning with urination since Thursday. The patient states that she has been weak since about Thursday. The patient denies blood in the stool. CT scan showed fecal impaction colitis. Patient received vancomycin 1 gram, Rocephin 1 gram, normal saline 30 mL/kg bolus, labetalol, and aspirin. Chest x-ray showed a new pulmonary nodule. The patient was started on Rocephin for UTI and gentle fluid rehydration. Her lactic acid improved. The patient was found to have elevated troponin and Cardiology was consulted. EKG was within normal limits. Elevated troponin was most likely secondary to demand ischemia. Cardiolgoy recommended starting aspirin, Plavix, and low dose Coreg. Dr. Jovel, her radio director saw her for her acute kidney injury on chronic kidney disease. Her BUN and creatinine improved with fluids. Hypertensive urgency is likely secondary to medication noncompliance. Patient was unable to take home medication with nausea and vomiting and improved with rehydration and restarting home medications. For colitis, patient was placed on Zosyn and a bowel regimen. The patient had multiple bowel movements and abdominal pain, improved. The pulmonary nodule that was found on chest x-ray; repeat two view chest x-ray showed the nodules were not definitely visualized. We recommend 3-month followup chest x-ray. DISPOSITION: Stable. DISCHARGE INSTRUCTIONS: 1. Location: Home. 2. Diet: Heart healthy. 3. Activity: As tolerated. 4. Follow up with Dr. Curran in 14 days, with Dr. Diop her PCP within 7 days, and with Dr. Jovel her radio director. Please call to schedule follow up as advised by Dr. Jovel. REILL[facility]
== END 2018-04-09 16:39 | disposition home or self-care (01) | DRG 872 ==
LOC: ERS 13:23 → T4-B 17:55 → 2NO 22:03
PROVIDERS: ADMIT Family Medicine; ATTEND Family Medicine
DX: A41.9 Sepsis, unspecified organism (principal); I24.8 Other forms of acute ischemic heart disease; N39.0 Urinary tract infection, site not specified; N17.9 Acute kidney failure, unspecified; E87.1 Hypo-osmolality and hyponatremia; E87.2 Acidosis; N13.30 Unspecified hydronephrosis; N25.81 Secondary hyperparathyroidism of renal origin; I25.10 Atherosclerotic heart disease of native coronary artery without angina pectoris; K52.89 Other specified noninfective gastroenteritis and colitis; I16.0 Hypertensive urgency; E86.1 Hypovolemia; I12.9 Hypertensive chronic kidney disease with stage 1 through stage 4 chronic kidney disease, or unspecified chronic kidney disease; N18.9 Chronic kidney disease, unspecified; R91.1 Solitary pulmonary nodule; E87.5 Hyperkalemia; H40.9 Unspecified glaucoma; N28.1 Cyst of kidney, acquired; K59.00 Constipation, unspecified; D69.6 Thrombocytopenia, unspecified; I44.7 Left bundle-branch block, unspecified; I25.2 Old myocardial infarction; Z95.5 Presence of coronary angioplasty implant and graft; Z90.49 Acquired absence of other specified parts of digestive tract; Z90.710 Acquired absence of both cervix and uterus
CPT/HCPCS: 36415; 71046; 74176; 80053; 82553; 83605; 84484; 85025; 85730; 90471; 90662; 93005; 93010; 96365; 96375; G0008; G8978-GP-CJ; G8979-GP-CJ; G8980-GP-CJ; G8987-GO-CI; G8988-GO-CI; G8989-GO-CI; J0696; J1644; J2001; J2543; J3370; J7050

== ENCOUNTER 2018-05-16 16:22 | Emergency (ER) | payer MEDICARE ==
[2018-05-16] MEDS ORDERED: Lorazepam 2 MG/ML VIAL ONE (16:41)
[2018-05-16] MEDS ORDERED: Ketorolac Tromethamine 30 MG/ML VIAL ONE (16:41)
[2018-05-16] MEDS ORDERED: Fentanyl 100 MCG/2 ML VIAL ONE (16:41)
[2018-05-16 16:58] LABS: #Eosinphils 0.1 thou/uL (0.0-0.7); #Lymphocytes 1.5 thou/uL (1.20-3.40); #Monocytes 0.5 thou/uL (0.11-0.59); #Neutrophils 5.9 thou/uL (1.40-6.50); %Lymphocytes 18.5 % (21.0-51.0); %Monocytes 6.1 % (0.0-10.0); %Neutrophils 74.4 % (42.0-75.0); Hemoglobin 9.9 g/dL (12.0-16.0); Mean Corpuscular HGB CONC 31.1 g/dL (32.0-36.0); Mean Corpuscular Hemoglobin 24.4 pg (27.0-31.0); Mean Corpuscular Volume 78.4 fL (78.0-98.0); Mean Platelet Volume 9.8 fL (7.4-10.4); Platelet Count 160 thou/uL (130-400); Red Blood Cell (RBC) Count 4.05 mill/uL (4.20-5.40); White Blood Cell (WBC) Count 7.9 thou/uL (4.8-10.8)
[2018-05-16 17:18] LABS: ALT (SGPT) 9 U/L (8-55); AST (SGOT) 11 U/L (5-34); Alkaline Phosphatase 76 U/L (40-150); Anion Gap 13 mmol/L (10-20); BUN (Urea Nitrogen) 35 mg/dL (9.8-20.1); Bilirubin, Total 0.6 mg/dL (0.2-1.2); CK (CPK) Less than 9 U/L (29-168); Calc. Creatinine Clearance 0 mL/min (70-130); Calcium 9.4 mg/dL (7.8-10.44); Carbon Dioxide 13 mmol/L (23-31); Chloride 112 mmol/L (98-107); Estimated GFR-MDRD 20; Globulin 3.4 g/dL (2.4-3.5); Glucose 106 mg/dL (83-110); Potassium 4.3 mmol/L (3.5-5.1); Protein, Total 6.4 g/dL (6.0-8.3); Sodium 134 mmol/L (136-145)
[2018-05-16 17:22] LABS: CKMB 1.2 ng/mL (0-6.6); Troponin I Less than 0.010 ng/mL (< 0.028)
--- NOTE | 2018-05-16 17:52 | CT ---
CT BRAIN WITHOUT CONTRAST: HISTORY: Headache. Neck pain. FINDINGS: No evidence of acute infarct, hemorrhage, midline shift, or abnormal extraaxial fluid collections are seen. There is a small, old infarction in the right cerebellar hemisphere. The ventricular size is appropriate, and the basilar cisterns are patent. The bony calvarium is intact. The visualized par anasal sinuses and mastoid air cells are well aerated. IMPRESSION: No CT evidence of acute intracranial process. POS: [facility]
--- NOTE | 2018-05-16 17:54 | CT ---
CT CERVICAL SPINE WITH CORONAL AND SAGITTAL REFORMATIONS: HISTORY: Neck pain. FINDINGS: Multilevel degenerative changes are seen. No fracture, subluxation, or bony destruction is identifie d. No facet malalignment is identified. Multilevel central canal and neural foraminal stenosis is also seen. There is cord impingement, most prominent at the C4-C5 level. Evaluation with MRI of the cervical spine would be helpful, on a nonemergent basis. There are low density lesions in the right lobe of the thyroid gland, which would be better evaluated with a thyroid ultrasound on a nonemergent basis. POS: [facility]
== END 2018-05-16 18:14 | disposition home or self-care (01) ==
LOC: ERS 16:22
DX: S16.1XXA Strain of muscle, fascia and tendon at neck level, initial encounter (principal); R51 Headache; E04.1 Nontoxic single thyroid nodule; M47.812 Spondylosis without myelopathy or radiculopathy, cervical region; I25.2 Old myocardial infarction; I10 Essential (primary) hypertension; Z79.899 Other long term (current) drug therapy; Z79.82 Long term (current) use of aspirin; X58.XXXA Exposure to other specified factors, initial encounter
CPT/HCPCS: 70450; 72125; 80053; 82553; 84484; 85025; 93005; 96374; 96375; J1885; J2060; J3010

== ENCOUNTER 2018-05-19 14:00 | Inpatient (IN) | payer MEDICARE ==
[2018-05-19 15:22] LABS: #Lymphocytes 1.1 thou/uL (1.20-3.40); #Monocytes 0.7 thou/uL (0.11-0.59); #Neutrophils 6.3 thou/uL (1.40-6.50); %Basophils 0.2 % (0.0-1.0); %Eosinophils 0.2 % (0.0-10.0); %Lymphocytes 13.5 % (21.0-51.0); %Neutrophils 77.1 % (42.0-75.0); Hemoglobin 10.3 g/dL (12.0-16.0); Mean Corpuscular HGB CONC 31.4 g/dL (32.0-36.0); Mean Corpuscular Hemoglobin 24.6 pg (27.0-31.0); Mean Corpuscular Volume 78.4 fL (78.0-98.0); Mean Platelet Volume 9.2 fL (7.4-10.4); Platelet Count 266 thou/uL (130-400); RBC Distribution Width 15.9 % (11.5-14.5); White Blood Cell (WBC) Count 8.1 thou/uL (4.8-10.8)
[2018-05-19 15:44] LABS: ALT (SGPT) 7 U/L (8-55); AST (SGOT) 10 U/L (5-34); Alkaline Phosphatase 70 U/L (40-150); Anion Gap 15 mmol/L (10-20); BUN (Urea Nitrogen) 43 mg/dL (9.8-20.1); Bilirubin, Total 0.6 mg/dL (0.2-1.2); Calc. Creatinine Clearance 0 mL/min (70-130); Calcium 10.5 mg/dL (7.8-10.44); Carbon Dioxide 17 mmol/L (23-31); Chloride 111 mmol/L (98-107); Estimated GFR-MDRD 19; Globulin 3.5 g/dL (2.4-3.5); Glucose 132 mg/dL (83-110); Potassium 5.1 mmol/L (3.5-5.1); Protein, Total 6.5 g/dL (6.0-8.3); Sodium 138 mmol/L (136-145)
[2018-05-19 17:16] LABS: INR-International Normal Ratio 1.1; PTT 27.6 SEC (22.9-36.1); Prothrombin Time 14.6 SEC (12.0-14.7)
[2018-05-19] MEDS ORDERED: Ondansetron PF 4 MG/2 ML Vial ONE (17:22)
[2018-05-19] MEDS ORDERED: Benzocaine 20% Spray 60 ML CAN ONE (17:59)
--- NOTE | 2018-05-19 18:28 | CT ---
CT ABDOMEN AND PELVIS WITHOUT IV CONTRAST: 05/19/18 INDICATIONS: Abdominal pain. Comparison made to CT of 04/06/18. FINDINGS: Lung bases clear. Liver, spleen and pancreas unremarkable for an unenhanced study. The patient is post cholecystectomy. Bilateral hydronephrosis again noted with hydroureters, unchanged from the recent exam. Bladder is mi ldly distended. There are dilated loops of small bowel in the left abdomen. These bowel loops measure up to 3.7 cm di ameter. Mid and distal small bowel loops are decompressed. Findings would indicate moderate grade sma ll bowel obstruction near the small bowel. Aorta is calcified but normal caliber. Stool throughout the colon. IMPRESSION: 1. There are dilated loops of small bowel in the mid and left abdomen with decompressed loops of mid and distal small bowel in the right abdomen. Moderate grade small bowel obstruction is indicated . 2. Bilateral hydronephrosis and hydroureter is again noted. POS: [facility]
[2018-05-19] MEDS ORDERED: Ondansetron PF 4 MG/2 ML Vial IVP PRN ×2 (19:14→19:38)
[2018-05-19] MEDS ORDERED: Ondansetron ODT 4 MG TAB SL PRN (19:14)
[2018-05-19 19:36] VITALS: BMI 21.8
[2018-05-19] MEDS ORDERED: Acetaminophen 650 MG Suppository PR PRN (19:38)
--- NOTE | 2018-05-19 19:59 | HP ---
REASON FOR ADMISSION: Small-bowel obstruction. HISTORY OF PRESENT ILLNESS: The patient gives history of having severe nausea and vomiting from 04:30 in the morning. She started seeing black stuff in the vomitus. This went on until 9:00 a.m. At around 11:00 a.m., patient drank a little bit of broth which again came out. She was feeling weak and her home health nurse came to check on her. They finally called her primary care physician, Dr. Diop who asked her to come to the emergency room. The patient has colicky abdominal pain and it is generalized. No complaints of fever, chest pain, palpitation, or PND. PAST MEDICAL AND SURGICAL HISTORY: Hypertension, history of CKD, dyslipidemia, hiatal hernia, history of small bowel obstruction in the past, recurrent constipation, nephropathy, diastolic dysfunction, glaucoma, history of cervical cancer with prior radiation therapy done with ileitis as a complication from that, cholecystectomy, hysterectomy with bilateral salpingo-oophorectomy, cardiac stents x2 in 2014, parathyroidectomy, appendectomy, cardiac catheterization done in 2000, prior cystoscopy for recurrent UTI, bilateral knee replacements done in 2008. PERSONAL HISTORY: Does not abuse alcohol or drugs. No history of smoking. FAMILY HISTORY: Mother lived up to 97 years and of natural causes. Father at the age of 78 years. He has had history of osteoarthritis. CURRENT MEDICATIONS: Patient is on aspirin 81 mg p.o. daily, calcitriol 0.25 mcg p.o. daily, clonidine 0.1 mg p.o. twice daily, latanoprost eyedrops as before, oxybutynin 10 mg extended release daily, potassium chloride 10 mEq p.o. daily, spironolactone 50 mg p.o. daily, atorvastatin 20 mg p.o. daily, Coreg 3.125 mg p.o. twice daily, Plavix 75 mg p.o. daily, MiraLax 17 grams p.o. daily. ALLERGIES: SULFA AND TETRACYCLINE. CODE STATUS: DNR. This was confirmed with the patient and her two children, Ms. Walker and Jodee who are also power of attorneys at bedside. REVIEW OF SYSTEMS: The following complete review of systems was negative, unless otherwise mentioned in the HPI or below: Constitutional: Weight loss or gain, ability to conduct usual activities. Skin: Rash, itching. Eyes: Double vision, pain. ENT/Mouth: Nose bleeding, neck stiffness, pain, tenderness. Cardiovascular: Palpitations, dyspnea on exertion, orthopnea. Respiratory: Shortness of breath, wheezing, cough, hemoptysis, fever or night sweats. Gastrointestinal: Poor appetite, abdominal pain, heartburn, nausea, vomiting, constipation, or diarrhea. Genitourinary: Urgency, frequency, dysuria, nocturia. Musculoskeletal: Pain, swelling. Neurologic/Psychiatric: Anxiety, depression. Allergy/Immunologic: Skin rash, bleeding tendency. PHYSICAL EXAMINATION: GENERAL: The patient is an 87-year-old female who is currently not in any acute distress. VITAL SIGNS: Blood pressure 102/60, pulse 70 per minute, respiratory rate 14 per minute, temperature 98.3 degrees Fahrenheit, saturating 98% on room air. NECK: Supple, no elevated JVD. EYES: Extraocular muscles intact. Pupils reacting to light. ORAL CAVITY: Mucous membranes are dry. No exudates or congestion. CARDIOVASCULAR SYSTEM: S1, S2 heard. Regular rhythm. RESPIRATORY SYSTEM: Air entry 1+ bilaterally. No rales or rhonchi. ABDOMEN: Soft, mild distention. No rigidity or guarding. EXTREMITIES: No peripheral edema or calf tenderness. VASCULAR SYSTEM: Peripheral pulses 1+ bilateral, no ischemic ulcerations or gangrene. CENTRAL NERVOUS SYSTEM: No gross focal deficits noted. Patient is alert, awake , oriented well. PSYCHIATRIC SYSTEM: The patient's mood is euthymic. No hallucinations or delusions. LABORATORY DATA AND IMAGING DATA: White count of 8, hemoglobin and hematocrit 10 and 33, platelet count 266, MCV 78 with 77% neutrophils. PT, INR, PTT within normal limits. Potassium 5.1, serum bicarbonate 17, BUN 43, creatinine 2.45. Serum glucose 132, calcium 10.5. AST and ALT within normal limits. Albumin is 3.0. CT of the abdomen and pelvis done shows dilated loops of small bowel in the mid and left abdomen with decompressed loops of mid and distal small bowel in the right abdomen, moderate grade small-bowel obstruction is indicated, bilateral hydronephrosis and hydroureter is again seen. This was compared to prior CAT scan done on 04/06/2018. CLINICAL IMPRESSION AND PLAN: The patient will be admitted to medical/surgical floor for small-bowel obstruction with intractable nausea and vomiting. Dr. Pickering has been informed by ER physician, Dr. Blake for consult. We will have an NG tube placed and patient will be on low intermittent suction. We will keep her n.p.o. The patient will be on lactated Ringer's at 75 mL per hour. We will closely keep an eye on her electrolytes in view of her chronic kidney disease and her potassium around 5 at present. The patient will be with walking program and will be ambulated on the floor. The patient has had prior history of small-bowel obstruction as well and severe constipation in the past. She has had surgical history of hysterectomy, cholecystectomy, and a prior history of radiation-induced ileitis as well making her prone for current sbo. Addendum: I spoke to Dr.Jason Funk with [facility] residency program and gave a full update on patient. [facility] residency physicians will be assuming care of patient from am. Patient's PCP is . REILLY
[2018-05-19] MEDS: Lactated Ringer's 1,000 ML IV SCH (20:51)
[2018-05-19] MEDS ORDERED: Latanoprost 0.005% Ophth Soln 2.5 ml Bottle EA EYE SCH (21:00)
[2018-05-19] MEDS ORDERED: Famotidine/PF 20 mg/2ml Vial SLOW IVP SCH (21:00)
--- NOTE | 2018-05-19 21:53 | PDOC.EVN ---
Event Note - Event Note Event Note: Assumed care from [facility] group at ~19:50. Spoke with Dr. Pickering regarding plan of care and will plan to continue NPO and consider a trial of clear liquids in the morning as toelrated by the patient/ Per Dr. Robbins and the patient, she has deferred to have an NG tube placed at this time. Examined patient at ~21:30 and patient denied any abdominal pain or N/V. Stated she was passing gas an wanted to get up to try to have a BM. Also confirmed code status with patient at bedside and she reaffirmed that wishes are DNR.
--- NOTE | 2018-05-19 21:53 | CON ---
DATE OF CONSULTATION: 05/19/2018 CONSULTING PHYSICIAN: Dr. Alcantar. REASON FOR CONSULTATION: Small-bowel obstruction. HISTORY OF PRESENT ILLNESS: Patient is a fairly frail looking 87-year-old white female. She was awo david from sleep this morning at about 4:00 with abdominal discomfort and vomiting. She tells me that her vomiting resolved by late morning. She still does not have much of an appetite. She was brought to the emergency room, where laboratory studies and a CT scan were obtained. Laboratory studies wer e relatively unremarkable with a white blood cell count of 8 and hemoglobin of 10.3. The hemoglobin of 10.3 is relatively stable for her. It was 9.8 in March. Her chemistry profile revealed acidosi s with a CO2 of 17. This, however, is improved from her CO2 on 05/16 and in March as well. This a cidosis is suspected to be related to underlying renal insufficiency. Her creatinine is 2.5, but it has been over 2 for the past several months and really for the past few years. Her CT scan showed evidence of bowel obstruction with dilated small bowel. Her last CT scan of the a bdomen and pelvis on 04/06/2018 did not reveal any small bowel dilatation but did reveal significant fecal impaction. She is currently resting in bed on the medical floor. When I was called by the emergency room, I rec ommended nasogastric tube and patient tells me that she refused this because she had a bad experience with one that was placed in the past. She denies any abdominal pain, nausea, or vomiting currently. PAST MEDICAL HISTORY: Significant for hypertension, chronic renal insufficiency, hyperlipidemia, hia espinoza hernia, hyperparathyroidism, diastolic dysfunction, glaucoma, history of cervical cancer, degener ative joint disease. PAST SURGICAL HISTORY: 1. Cholecystectomy. 2. Hysterectomy with bilateral salpingo-oophorectomy. 3. Cardiac stents x2. 4. Parathyroidectomy. 5. Appendectomy. 6. Radiation and chemotherapy for cervical cancer in 1977. 7. Recent cystoscopy 8. Bilateral total knee replacements in 2008. CURRENT MEDICATIONS: At recent hospitalization at the time of discharge included carvedilol, Plavix, MiraLax, clonidine, spironolactone, calcitriol, atorvastatin, eyedrops. ALLERGIES: SULFA AND TETRACYCLINE ANTIBIOTICS. SOCIAL HISTORY: She is . She lives in [place] with one of her daughters. She had 2 childre n. Her primary care physician is Dr. Diop. She does not smoke nor does she drink alcohol. REVIEW OF SYSTEMS: Otherwise, unremarkable. She notes that she a bowel movement in 2 days. FAMILY HISTORY: Noncontributory. PHYSICAL EXAMINATION: VITAL SIGNS: She is afebrile, pulse is 62, blood pressure is 136/70. GENERAL: She is a well-developed, well-nourished, thin and somewhat frail appearing white female res ting in bed. She is alert and oriented x3. HEAD, EYES, EARS, NOSE, AND THROAT: Unremarkable. NECK: Supple. LUNGS: Clear to auscultation anteriorly. CARDIAC: Regular rate and rhythm. ABDOMEN: Not significantly distended. It may be a little protuberant. This may be chronic. It is soft in all quadrants and there is no tenderness to palpation. Bowel sounds are present and normoact ernie diffusely. EXTREMITIES: Unremarkable. ASSESSMENT: Patient who had nausea and vomiting earlier today, but she tells me that she denies any symptoms currently. CT scan appears to be consistent with small-bowel obstruction. She certainly dhillon d enough surgery that she has recently have adhesions would cause a small-bowel obstruction. I recom mended again to the patient that she have a nasogastric tube placed to hopefully last upon spontaneou s resolution for bowel obstruction. She again refuses this recommendation. I explained to her that while it is possible that a bowel obstruction may resolve on its own that it got a much higher likeli trevizo to do so with proximal bowel decompression. She seems to understand, but still refuses this. I told her that either this obstructive appearing process will resolve on its own or it would not and if it does and she still need nasogastric tube decompression or surgery to treat this. She see ms to understand this content to proceed in this fashion. She also tells me, however, that she does not want, would refuse any surgery. Since she is not interested in nasogastric tube or surgery and a t this point, I will sign off. If her problems resolved spontaneously then her diet may be advanced per the primary care physicians. If it does not, and she appears to have ongoing obstructive issues and she is willing to entertain the idea of some form of treatment and please reconsult surgery.
[2018-05-19] MEDS ORDERED: Metoprolol Tartrate 5 MG/5 ML VIAL IVP SCH (22:00)
[2018-05-20 05:24] LABS: Anion Gap 14 mmol/L (10-20); BUN (Urea Nitrogen) 44 mg/dL (9.8-20.1); Calc. Creatinine Clearance 16 mL/min (70-130); Carbon Dioxide 15 mmol/L (23-31); Chloride 113 mmol/L (98-107); Estimated GFR-MDRD 21; Glucose 85 mg/dL (83-110); Potassium 4.9 mmol/L (3.5-5.1); Sodium 137 mmol/L (136-145)
[2018-05-20 06:03] LABS: #Eosinphils 0.1 thou/uL (0.0-0.7); #Lymphocytes 1.2 thou/uL (1.20-3.40); #Monocytes 0.6 thou/uL (0.11-0.59); #Neutrophils 4.7 thou/uL (1.40-6.50); %Basophils 0.3 % (0.0-1.0); %Eosinophils 0.8 % (0.0-10.0); %Monocytes 9.2 % (0.0-10.0); %Neutrophils 71.7 % (42.0-75.0); Anisocytosis SLIGHT = 6-15 cells (100X) (0-5/hpf); Hemoglobin 9.7 g/dL (12.0-16.0); MDiff Complete? YES; Mean Corpuscular HGB CONC 29.8 g/dL (32.0-36.0); Mean Corpuscular Hemoglobin 23.7 pg (27.0-31.0); Mean Corpuscular Volume 79.4 fL (78.0-98.0); Mean Platelet Volume 9.7 fL (7.4-10.4); Ovalocytes SLIGHT = 2-5 cells (100X) (0-1/hpf); Platelet Count 199 thou/uL (130-400); RBC Distribution Width 16.3 % (11.5-14.5); Red Blood Cell (RBC) Count 4.07 mill/uL (4.20-5.40); White Blood Cell (WBC) Count 6.6 thou/uL (4.8-10.8)
[2018-05-20 08:09] VITALS: TEMP 98.3
--- NOTE | 2018-05-20 08:25 | PDOC.FM ---
- Subjective Subjective: Pt reports no further emesis episodes last night. BM x3. Feels ready to eat. Still refuses NG tube. - Objective Vital Signs & Weight: Vital Signs (12 hours) Temp Pulse Resp BP Pulse Ox 05/20/18 08:07 98.3 F 69 16 150/61 H 97 05/20/18 04:00 98.0 F 72 18 179/68 H 97 05/20/18 00:00 97.4 F L 63 16 147/75 H 99 Weight Weight 54.114 kg I&O: 05/19/18 05/20/18 05/21/18 06:59 06:59 06:59 Intake Total 672 Balance 672 Result Diagrams: 05/20/18 04:42 05/20/18 04:42 <Katelin Jovel - Last Filed: 05/20/18 08:58> - Objective Vital Signs & Weight: Vital Signs (12 hours) Temp Pulse Resp BP Pulse Ox 05/20/18 09:00 97 05/20/18 08:07 98.3 F 69 16 150/61 H 97 05/20/18 04:00 98.0 F 72 18 179/68 H 97 05/20/18 00:00 97.4 F L 63 16 147/75 H 99 Weight Weight 54.114 kg I&O: 05/19/18 05/20/18 05/21/18 06:59 06:59 06:59 Intake Total 672 Balance 672 Result Diagrams: 05/20/18 04:42 05/20/18 04:42 <Hiram Bonilla - Last Filed: 05/20/18 11:34> Phys Exam - Physical Examination Constitutional: NAD HEENT: PERRLA, sclera anicteric Neck: full ROM Respiratory: no wheezing, wheezing present Cardiovascular: RRR, no significant murmur Gastrointestinal: soft, non-tender, positive bowel sounds hyperactive bowel sounds, mild guarding, no rebound Musculoskeletal: no edema, pulses present Neurological: non-focal, normal sensation Psychiatric: normal affect, A&O x 3 Skin: no rash Deviation from normal: mildly decreased turgor <Katelin Jovel - Last Filed: 05/20/18 08:58> Dx/Plan (1) Small bowel obstruction due to adhesions Code(s): K56.50 - INTESTNL ADHESIONS, UNSP TO PARTIAL VERSUS COMPLETE OBST Status: Acute (2) Hypertension Code(s): I10 - ESSENTIAL (PRIMARY) HYPERTENSION Status: Acute (3) Dyslipidemia Code(s): E78.5 - HYPERLIPIDEMIA, UNSPECIFIED Status: Acute (4) History of small bowel obstruction Code(s): Z87.19 - PERSONAL HISTORY OF OTHER DISEASES OF THE DIGESTIVE SYSTEM Status: Acute (5) Chronic renal insufficiency Code(s): N18.9 - CHRONIC KIDNEY DISEASE, UNSPECIFIED Status: Chronic - Plan Plan: 87 yo F admitted for SBO. SBO 2/2 adhesions -hx of extensive surgeries -still refusing NG decompression, not interested in surgery. Dr. 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 Bonilla <Katelin Jovel - Last Filed: 05/20/18 08:58> Attending Addendum - Attending Addendum Date/Time: 05/20/18 1133 I personally evaluated the patient and discussed the management with Dr. Jovel. I agree with the History, Examination, Assessment and Plan documented above with any addition or exceptions noted below. Patient declined surgical intervention or NG tube yesterday for SBO, fortunately it appears to have resolved and she has had multiple BM. Will advance diet and if tolerates, can be discharged today as she declines any invasive interventions. Other lab abnormalities overall stable from previous admissions. <Hiram Bonilla - Last Filed: 05/20/18 11:34>
[2018-05-20] MEDS: Lactated Ringer's 1,000 ML IV SCH (08:48)
[2018-05-20] MEDS ORDERED: Enoxaparin Sodium 30 MG/0.3 ML SYRINGE SC SCH (09:00)
[2018-05-20] MEDS ORDERED: Carvedilol 3.125 MG TAB PO SCH (09:00)
[2018-05-20 11:47] VITALS: BP 136/62
[2018-05-21] MEDS ORDERED: Spironolactone 25 MG TAB PO SCH (09:00)
[2018-05-26] MEDS ORDERED: cloNIDine 0.2mg/24 Hour PATCH TD SCH (09:00)
== END 2018-05-20 12:49 | disposition home or self-care (01) | DRG 389 ==
LOC: ERS 14:00 → T4-B 18:03
PROVIDERS: ADMIT Internal Medicine; ATTEND Internal Medicine
PROC: 0D9670Z Drainage of Stomach with Drainage Device, Via Natural or Artificial Opening (ICD-10-PCS; principal; 2018-05-19)
DX: K56.50 Intestinal adhesions [bands], unspecified as to partial versus complete obstruction (principal); I13.0 Hypertensive heart and chronic kidney disease with heart failure and stage 1 through stage 4 chronic kidney disease, or unspecified chronic kidney disease; I50.32 Chronic diastolic (congestive) heart failure; K52.0 Gastroenteritis and colitis due to radiation; N18.9 Chronic kidney disease, unspecified; E78.5 Hyperlipidemia, unspecified; K44.9 Diaphragmatic hernia without obstruction or gangrene; K59.09 Other constipation; Z96.653 Presence of artificial knee joint, bilateral; Z85.41 Personal history of malignant neoplasm of cervix uteri; Z92.3 Personal history of irradiation; Z95.1 Presence of aortocoronary bypass graft; Z79.82 Long term (current) use of aspirin; Z88.2 Allergy status to sulfonamides; Z79.899 Other long term (current) drug therapy; I25.10 Atherosclerotic heart disease of native coronary artery without angina pectoris; Z66 Do not resuscitate; S16.1XXA Strain of muscle, fascia and tendon at neck level, initial encounter; R51 Headache; E04.1 Nontoxic single thyroid nodule; M47.812 Spondylosis without myelopathy or radiculopathy, cervical region; I25.2 Old myocardial infarction; X58.XXXA Exposure to other specified factors, initial encounter
CPT/HCPCS: 36415; 70450; 72125; 74176; 80048; 80053; 82553; 83605; 84484; 85025; 85610; 85730; 93005; 96374; 96375; J1650; J1885; J2060; J2405; J3010; S0028

== ENCOUNTER 2019-02-10 09:12 | Emergency (ER) | payer MEDICARE ==
[2019-02-10] MEDS ORDERED: Adacel (T-DAP) 0.5 ML SYRINGE ONE (09:32)
[2019-02-10] MEDS ORDERED: Acetaminophen 500 MG TAB ONE (09:46)
--- NOTE | 2019-02-10 10:10 | CT ---
Exam: Head CT without contrast HISTORY: Fall. Posttraumatic pain. Laceration above the left eyebrow. COMPARISON: 05/16/2018 FINDINGS: Hemorrhage: No intraparenchymal hemorrhage or extra-axial hematoma. Brain parenchyma: Cortical witt-white matter differentiation is preserved. No mass effect or midline shift. Basilar cisterns are patent. Ventricular system: Ventricles and sulci are patent and symmetric. Calvarium: Intact. Sinuses and mastoid air cells: Adequate aeration. Minimal posttraumatic soft tissue swelling in the left supraorbital region. IMPRESSION: No acute intracranial process.
--- NOTE | 2019-02-10 10:17 | RAD ---
Exam:3 views left wrist HISTORY: Pain. Fall. COMPARISON: None FINDINGS: Mild bone mineralization. There are degenerative change of the radiocarpal joint space. Real cification of the triangular fibrocartilage complex. No acute fracture. Intercarpal joint spaces are preserved. IMPRESSION: 1. Diffuse bony mineralization. 2. No fracture.
--- NOTE | 2019-02-10 10:47 | RAD ---
LEFT SHOULDER THREE VIEWS: History: Fall, left shoulder pain. FINDINGS/IMPRESSION: There are degenerative changes in the acromioclavicular joint. No acute fracture or dislocation is se en. POS: [facility]
== END 2019-02-10 10:35 | disposition home or self-care (01) ==
LOC: SCSER 09:12
DX: S01.112A Laceration without foreign body of left eyelid and periocular area, initial encounter (principal); M25.512 Pain in left shoulder; I25.2 Old myocardial infarction; I10 Essential (primary) hypertension; Z79.899 Other long term (current) drug therapy; Z79.82 Long term (current) use of aspirin; Z23 Encounter for immunization; W17.89XA Other fall from one level to another, initial encounter
CPT/HCPCS: 12011; 70450; 90471; 90715